=== PATIENT | male | born 1975 | race American Indian/Alaskan Native ===

== ENCOUNTER 2017-07-16 10:15 | Emergency (ER) | payer OTHER ==
[2017-07-16 10:15] VITALS: BMI 24.3
--- NOTE | 2017-07-16 10:48 | ED PDOC ---
Arrival/HPI <Misbah Daniels - Last Filed: 07/16/17 11:40> - General Historian: Patient - History of Present Illness Time/Duration: 24 hours Symptom Onset: Sudden Symptom Course: Worsening Quality: Stabbing, Throbbing Severity Level: Severe Activities at Onset: Other (running) Context: Slipped, Tripped <Aspen William - Last Filed: 07/16/17 11:53> - General Chief Complaint: Lower Extremity Problem/Injury Time Seen by Provider: 07/16/17 10:22 - History of Present Illness Narrative History of Present Illness (Text): 07/16/17 10:45 41M w/no sig PMH evaluated for Right foot pain x 1 day. Pt reports playing basketball yesterday, running, foot slipped and he rolled his ankle. Pt immediately left the game, was able to drive himself home. Pain increased overnight, is severe, sharp, radiates up leg, constant since incident. Tried to ice foot, pain was intolerable. Pt elevated extremity, without resolution. Unable to bear weight after arriving home. Denies trauma to other areas of body , other complaints. PMH: Denies PSH: Denies All: NKDA SH: Admits to tobacco use 2.5 ppdx 17 yrs, admits to ETOH use averages 10 drinks per week. Denies illicit drug use. PMD: Rodri Lizarraga (Aspen William) Modifying Factors (Text): 07/16/17 10:48 None (Aspen William) Associated Symptoms (Text): 07/16/17 10:48 None (Aspen William) Past Medical History - Provider Review Nursing Documentation Reviewed: Yes - Infectious Disease Hx of Infectious Diseases: None - Tetanus Immunization Tetanus Immunization: Unknown - Past Medical History Past Medical History: No Previous - Psychiatric Hx Depression: No Hx Emotional Abuse: No Hx Physical Abuse: No Hx Substance Use: No - Past Surgical History Past Surgical History: No Previous - Suicidal Assessment Feels Threatened In Home Enviroment: No <Aspen William - Last Filed: 07/16/17 11:53> Family/Social History - Physician Review Nursing Documentation Reviewed: Yes Family/Social History: No Known Family HX Smoking Status: Light Smoker < 10 Cigarettes Daily Hx Alcohol Use: Yes Hx Substance Use: No <Aspen William - Last Filed: 07/16/17 11:53> Allergies/Home Meds <Misbah Daniels - Last Filed: 07/16/17 11:40> <Aspen William - Last Filed: 07/16/17 11:53> Allergies/Adverse Reactions: Allergies No Known Allergies Allergy (Verified 07/16/17 10:35) Review of Systems - Physician Review All systems were reviewed & negative as marked: Yes - Review of Systems Constitutional: Normal. absent: Fatigue, Fevers Eyes: Normal. absent: Vision Changes ENT: Normal. absent: Sore Throat Respiratory: Normal. absent: SOB Cardiovascular: Normal. absent: Chest Pain Gastrointestinal: Normal. absent: Abdominal Pain Genitourinary Male: Normal. absent: Dysuria Musculoskeletal: Other (Right foot swelling). absent: Normal, Back Pain Skin: Normal. absent: Cellulitis Neurological: Normal. absent: Dizziness <Aspen William - Last Filed: 07/16/17 11:53> Physical Exam Vital Signs Reviewed: Yes Temperature: Afebrile Blood Pressure: Normal Pulse: Regular Respiratory Rate: Normal Appearance: Positive for: Non-Toxic Pain Distress: Moderate Mental Status: Positive for: Alert and Oriented X 3 - Systems Exam Head: Present: Atraumatic, Normocephalic Extroacular Muscles: Present: EOMI Mouth: Present: Moist Mucous Membranes Nose (External): Present: Atraumatic Neck: Present: Normal Range of Motion Respiratory/Chest: Present: Clear to Auscultation, Good Air Exchange. No: Respiratory Distress, Accessory Muscle Use Cardiovascular: Present: Regular Rate and Rhythm, Normal S1, S2. No: Murmurs Abdomen: Present: Normal Bowel Sounds. No: Tenderness, Distention, Peritoneal Signs Back: Present: Normal Inspection Upper Extremity: Present: Normal Inspection. No: Cyanosis, Edema Lower Extremity: Present: Tenderness (Dorsum of right foot), Swelling (Dorsum of right foot), Neurovascularly Intact. No: Normal Inspection, CALF TENDERNESS , Normal ROM (decreased ROM of R food due to pain) Neurological: Present: GCS=15, CN II-XII Intact, Speech Normal Skin: Present: Warm, Dry, Normal Color. No: Rashes Psychiatric: Present: Alert, Oriented x 3, Normal Insight, Normal Concentration <Aspen William - Last Filed: 07/16/17 11:53> Vital Signs Temp Pulse Resp BP Pulse Ox 07/16/17 10:31 98.9 F 76 16 115/79 99 Medical Decision Making - RAD Interpretation Atm Mechanic: Radiologist <Misbah Daniels - Last Filed: 07/16/17 11:40> <Aspen William - Last Filed: 07/16/17 11:53> ED Course and Treatment: 07/16/17 In agreement with resident note, which includes further HPI details. Patient was seen and evaluated with resident, came up with plan and treatment together. Patient on exam is has focal tenderness over right lateral mid-foot. There is no ankle pain on palpation, no calf or achilles pain. Patient is neurovascularly intact. The plan is to obtain x-ray and splint patient due to severe pain and swelling. He will be given crutches and a work note. Patient was advised to follow up with orthopedics. (Misbah Daniels) 07/16/17 10:50 Pt seen/evaluated with attending- will order x-ray of right foot and pain medication. Further medical decisions based on imaging. 07/16/17 11:48 X-ray reviewed w/ED attending, will send pt home on Naprosyn w/crutches after foot is splinted. (Aspen William) - RAD Interpretation Radiology Orders: 07/16/17 10:44 FOOT RIGHT 3 VIEWS ROUTINE [RAD] Stat - Medication Orders Current Medication Orders: Discontinued Medications Ibuprofen (Motrin Tab) 800 mg PO STAT STA Stop: 07/16/17 10:45 Last Admin: 07/16/17 11:02 Dose: 800 mg - PA / PROVIDER RELATIONS ADVOCATE / Resident Statement / has reviewed & agrees with the documentation as recorded. MD/DO has examined the patient and agrees with the treatment plan. - Scribe Statement The provider has reviewed the documentation as recorded by the Scribe <Misbah Daniels - Last Filed: 07/16/17 11:40> <Aspen William - Last Filed: 07/16/17 11:53> - Scribe Statement Wanda Mazariegos Provider Scribe Attestation: All medical record entries made by the Scribe were at my direction and personally dictated by me. I have reviewed the chart and agree that the record accurately reflects my personal performance of the history, physical exam, medical decision making, and the department course for this patient. I have also personally directed, reviewed, and agree with the discharge instructions and disposition. (Misbah Daniels) Disposition/Present on Arrival <Misbah Daniels - Last Filed: 07/16/17 11:40> - Present on Arrival Any Indicators Present on Arrival: No History of DVT/PE: No History of Uncontrolled Diabetes: No Urinary Catheter: No History of Decub. Ulcer: No History Surgical Site Infection Following: None - Disposition Have Diagnosis and Disposition been Completed?: Yes Disposition Time: 11:48 Patient Plan: Discharge <Aspen William - Last Filed: 07/16/17 11:53> - Disposition Diagnosis: Right foot sprain Disposition: HOME/ ROUTINE Condition: STABLE Discharge Instructions (ExitCare): Foot Sprain (ED) Additional Instructions: Please make an appointment with the orthopedic surgeon for evaluation of foot. If you need a work note for more than today, please contact Dr. Lizarraga's office. Prescriptions: Naproxen [Naprosyn] 250 mg PO Q6H PRN #28 tablet PRN Reason: Pain, Moderate (4-7) Referrals: Fermín Jain MD [Staff Provider] - Follow up with primary Forms: [email or web address] [facility] ([place]), WORK NOTE
[2017-07-16 12:27] VITALS: BP 140/82; PULSE 80; RESP 19; TEMP 98.8; O2SAT 100
--- NOTE | 2017-07-16 12:42 | RAD ---
PROCEDURE: Right Foot Radiographs. HISTORY: trauma COMPARISON: None. FINDINGS: BONES: Normal. No fracture. JOINTS: Normal. SOFT TISSUES: Normal. OTHER FINDINGS: None. IMPRESSION: Normal right foot radiographs.
== END 2017-07-16 12:26 | disposition home or self-care (01) ==
LOC: ED 10:15
DX: S93.601A Unspecified sprain of right foot, initial encounter (principal); X50.0XXA Overexertion from strenuous movement or load, initial encounter; Y93.67 Activity, basketball; Y92.39 Other specified sports and athletic area as the place of occurrence of the external cause